=== PATIENT | male | born 1930 | race Caucasian/White ===

== ENCOUNTER 2019-11-13 01:36 | Observation (INO) | payer MEDICARE ==
[2019-11-13] MEDS ORDERED: Naloxone HCl 2 mg/2 ml Syringe ONE (02:07)
[2019-11-13 02:13] LABS: #Basophils 0.1 thou/uL (0.0-0.2); #Eosinphils 0.1 thou/uL (0.0-0.7); #Lymphocytes 2.6 thou/uL (1.20-3.40); #Monocytes 0.8 thou/uL (0.11-0.59); #Neutrophils 4.3 thou/uL (1.40-6.50); %Basophils 0.8 % (0.0-1.0); %Eosinophils 1.4 % (0.0-10.0); %Monocytes 10.1 % (0.0-10.0); %Neutrophils 54.7 % (42.0-75.0); Hemoglobin 12.3 g/dL (14.0-18.0); Mean Corpuscular HGB CONC 34.8 g/dL (32.0-36.0); Mean Corpuscular Volume 94.7 fL (78.0-98.0); Mean Platelet Volume 8.2 fL (7.4-10.4); Platelet Count 187 thou/uL (130-400); RBC Distribution Width 12.4 % (11.5-14.5); Red Blood Cell (RBC) Count 3.73 mill/uL (4.70-6.10); White Blood Cell (WBC) Count 7.9 thou/uL (4.8-10.8)
[2019-11-13 02:18] LABS: INR-International Normal Ratio 1.1; PTT 30.4 sec (22.9-36.1)
[2019-11-13 02:29] LABS: Acetaminophen Less than 6.0 mcg/mL (10.0-30.0); Alcohol Less than 10 mg/dL (Less than 10); Salicylate Less than 8.0 mg/dL (15.0-30.0)
[2019-11-13 02:30] LABS: ALT (SGPT) 9 U/L (8-55); AST (SGOT) 16 U/L (5-34); Alkaline Phosphatase 43 U/L (40-110); Anion Gap 13 mmol/L (10-20); BUN (Urea Nitrogen) 31 mg/dL (8.4-25.7); Bilirubin, Total 0.6 mg/dL (0.2-1.2); CK (CPK) 139 U/L (30-200); Calc. Creatinine Clearance 0 mL/min (70-130); Calcium 8.7 mg/dL (7.8-10.44); Carbon Dioxide 22 mmol/L (23-31); Chloride 108 mmol/L (98-107); Estimated GFR-MDRD 48; Globulin 3.1 g/dL (2.4-3.5); Glucose 100 mg/dL (83-110); Potassium 3.6 mmol/L (3.5-5.1); Protein, Total 7.1 g/dL (5.8-8.1); Sodium 139 mmol/L (136-145)
[2019-11-13 02:58] LABS: Bilirubin Negative (Negative); Blood, Urine Negative (Negative); Clarity Clear (Clear); Glucose, Urine (Dipstick) Normal (Negative); Leukocyte Negative Leu/uL (Negative); Nitrite Negative (Negative); Protein, Urine (Dipstick) 10 mg/dL (Neg-Trace); Urobilinogen Normal mg/dL (Less than 2)
[2019-11-13 03:14] LABS: Amphetamine Not Detected (NotDetected); Barbiturates Screen Not Detected (NotDetected); Benzodiazepine Screen Not Detected (NotDetected); Cocaine Metabolite Screen Not Detected (NotDetected); Medtox Control Line Valid? VALID (VALID); Medtox Reader # READER 4; Methadone Not Detected (NotDetected); Methamphetamine Not Detected (NotDetected); Opiate Screen Not Detected (NotDetected); Oxycodone Screen Not Detected (NotDetected); Phencyclidine (PCP) Not Detected (NotDetected); THC/Cannabinoid Screen Not Detected (NotDetected); Tricyclic Screen Detected (NotDetected)
--- NOTE | 2019-11-13 04:36 | HP ---
CHIEF COMPLAINT: Altered mental status. HISTORY OF PRESENT ILLNESS: The patient was found wandering around outside of a halfway, was seen by a bystander who called the EMS. The patient seems to be confused. The patient does not know his name. For now, he is admitted under the name of Michael Bustamante. The patient is awake, but mumbling and confused. Workup in the emergency room including CT of the brain, no acute finding. Urinalysis, no acute finding. Urine drug screen only positive for tricyclics. No further history can be obtained. The patient may have a history of Alzheimer dementia, but this is not confirmed. The patient is being admitted to hospital for further management. PAST MEDICAL HISTORY: Unknown?, Alzheimer dementia? PAST SURGICAL HISTORY: Scars noted to the head? unknown. PAST PSYCHIATRIC HISTORY: Unknown. SOCIAL HISTORY: Unknown. ALLERGIES: UNKNOWN. HOME MEDICATIONS: Unknown. REVIEW OF SYSTEMS: Unable to obtain due to the patient's confusion. PHYSICAL EXAMINATION: GENERAL: The patient is awake, confused. VITAL SIGNS: Blood pressure 124/67, pulse is 68, respiratory rate is 18, temperature is 98, oxygen saturation 100% on room air. HEENT: Head and neck normocephalic. NECK: Supple. No JVD. CHEST: Fair bilateral air entry. HEART: S1, S2. Regular. ABDOMEN: Soft, nontender. Bowel sounds present. NEUROLOGIC: Awake, confused. Moving extremities. PSYCHIATRIC: Unable to assess. EXTREMITIES: No clubbing or cyanosis. GENITOURINARY: No suprapubic tenderness. No flank tenderness. LABORATORY DATA: Urine drug screen only positive for tricyclics. Sodium is 139, BUN is 31, creatinine is 1.4. WBC 7.9, hemoglobin 12.3, platelets 187. CT of the brain was reported as no acute findings. ASSESSMENT AND PLAN: 1. Acute encephalopathy, metabolic? 2. Acute kidney injury? 3. Dehydration. 4. Dementia? 5. Alzheimer? PLAN: 1. Admit. 2. Tele monitor. 3. Frequent neuro checks. 4. IV fluids. 5. Monitor kidney function and urine output. 6. MRI of the brain in a.m. 7. Consult Neurology in a.m. for evaluation and further recommendation. 8. Consult complex case manager/manager social media. The patient was found outside the halfway confused, with unknown name or history at this time. 9. DVT prophylaxis as appropriate. 10. Expected length of stay at least 1 midnight if the patient is stable and safe to be discharged. Job ID: [id number]
[2019-11-13 05:18] VITALS: BMI 20.7
[2019-11-13] MEDS: Sodium Chloride 0.9% 1,000 ML IV SCH ×2 (06:48→17:42)
--- NOTE | 2019-11-13 07:38 | CT ---
PRELIMINARY REPORT/[facility]/EMERGENCY AFTER HOURS PROCEDURE: This report was discussed with Sharer, Dipti ANGEL by Any Wood on Nov 13, 2019 02:23:00 CDT. Add endum electronically signed by Any Wood on November 13, 2019 2:24:[address] BRAIN WITHOUT CONTRAST History: Per EMS he was found wandering around outside of a half-way. There was a bystander that found him. He seemed confused. He does not know his name. He cannot provide any history. Comparison: None. Findings: There is age-related atrophy. Punctate basal ganglia calcifications on the right. Bilateral moderate periventricular and subcortical white matter hypodensities are nonspecific, most likely on the basis of chronic small vessel ischemia. Cedeño-white interface preserved throughout. No evidence of sulcal effacement. No intracranial hemorrhage, mass effect or midline shift. No hydrocephalus or extra-axial fluid collection. Calvarium intact. No focal scalp hematoma identified. Vascular calcifications are present. Orbits, pa ranasal sinuses and mastoid air cells are unremarkable. Bilateral lens replacements noted. Impression: 1. No acute intracranial abnormality identified. If concern persists, consider MRI. 2. Chronic and senescent intracranial findings, as above. ELECTRONICALLY SIGNED BY: Jin Taylor DO Nov 13, 2019 2:20:42 AM CDT FINAL REPORT: EXAM: HEAD CT WITHOUT CONTRAST: HISTORY: Altered mental status. COMPARISON: None. FINDINGS: Hemorrhage: No intraparenchymal hemorrhage or extra-axial hematoma. Brain parenchyma: Cortical cedeño-white matter differentiation is preserved. No mass effect or midline shift. Basilar cisterns are patent.White matter hypodensities due to chronic small vessel ischemic change. Ventricular system: Ventricles and sulci are patent and symmetric. Calvarium: Intact. Sinuses and mastoid air cells: Adequate aeration. IMPRESSION: 1. This report is in agreement with initial report by [facility]. 2. No acute intracranial process. Transcribed Date/Time: 11/13/2019 8:03 AM
--- NOTE | 2019-11-13 07:55 | RAD ---
CHEST 1 VIEW: HISTORY: Altered mental status. Comparison: None. FINDINGS: Cardiac silhouette:Normal cardiac silhouette. There are sternotomy wires and mediastinal clips. Aorta: Atherosclerosis. Pulmonary vessels: Normal. Costophrenic angles: Minimal left-sided pleural effusion. LUNGS: Patchy opacities lung bases. Correlate for aspiration, atelectasis or pneumonia. Pneumothorax: None. Osseous abnormalities: None. IMPRESSION: 1. Atherosclerosis 2. Pleural and parenchymal changes along bases. Continued surveillance is recommended. CODE T Transcribed Date/Time: 11/13/2019 8:22 AM
[2019-11-13] MEDS: Aspirin 81 mg Enteric Coated Tablet PO SCH (08:16)
--- NOTE | 2019-11-13 13:42 | EEG ---
Referring Physician: Stephanie NICOLE EEG # [id number] TEST TYPE: EXTENDED CONTINUOUS VIDEO EEG REPORT: This EEG was performed using 24 channel [employer] digital video EEG machine with 24 disc electrodes. This was an extended 2 hour 10 minutes of inpatient video EEG recording. Digital analysis of the EEG was done for spike and seizure detection which revealed no abnormalities. BACKGROUND: The posterior background rhythm was not observed. HYPERVENTILATION: Not performed. PHOTIC STIMULATION: No significant response seen with photic stimulation. SLEEP: No stage change was observed. EEG DIAGNOSIS: 1.) Generalized irregular theta activity seen during the recording. 2.) Absence of posterior background rhythm. CLINICAL INTERPRETATION: THIS EEG IS CONSISTENT WITH MODERATE GENERALIZED NONSPECIFIC CEREBRAL DYSFUNCTION. NO ICTAL OR INTERICTAL EPILEPTIFORM ABNORMALITIES SEEN DURING THE RECORDING. Special Effects Person: PAULA [employer] Officer: EEG.NOMI MOURA
--- NOTE | 2019-11-13 15:45 | CT ---
CT cervical spine noncontrast HISTORY: Injury. COMPARISON: 07/13/2019. FINDINGS: Vertebral body heights and alignment are maintained. Multilevel disc space narrowing and os teophytosis are similar in appearance to the prior study. Old healed fracture at the base of the odontoid process is similar in appearance to prior study. Resu ltant retropulsion and circumferential degenerative changes, resulting in stenosis of the central canal, are unchanged. Prominent calcification at each carotid bifurcation. IMPRESSION : Old healed odontoid process fracture. Degenerative changes No acute osseous abnormalities are demonstrated. Atherosclerosis.
--- NOTE | 2019-11-13 15:46 | MRI ---
MRI OF BRAIN WITHOUT CONTRAST: 11/13/19 INDICATIONS: Mental status change. TIA. Correlation made to CT performed earlier today. FINDINGS: There is cortical atrophy. Ventricles have normal size and position given the degree of atrophy. Moderate chronic ischemic white matter change. No evidence of restricted diffusion. No evidence of acute infarct, mass, or edema. No evidence of hem orrhage. The intracranial internal carotid arteries and proximal cerebral arteries show expected flow voids. B asilar artery appears patent. The paranasal sinuses and mastoids are clear. On the sagittal T1 sequence, there is deformity involving the C2 vertebrae. Correlation is made to pr ior CT cervical spine of 07/13/19. Deformity was present at that time; however, on the current study th ere is evidence of fracture through the base of the dens which was not present on the prior study. Th ere is no significant change in position since that exam. Suggest further evaluation with CT cervical spine to assess interval change from the prior study. IMPRESSION: 1. Moderately severe chronic ischemic white matter change. No evidence of acute infarct. 2. Sagittal T1 images show evidence of fracture at the base of the dens. There is deformity of t he C2 vertebra which was noted on CT cervical spine of 07/13/19. However, the fracture may be new since that time. Recommend further evaluation with CT cervical spine to assess interval change. These findings and recommendations were relayed to the patient's nurse, Constance at 2SE at the time of t his exam. That call will be placed in order of CT cervical spine made after notifying the patient's p hysician.
--- NOTE | 2019-11-13 17:23 | PDOC.EVN ---
Event Note - Event Note Event Note: Discussed plan with Niece. Patient at baseline and is pending placement. Code status changed per [facility] request
[2019-11-13] MEDS ORDERED: Haloperidol Lactate 5 MG/ML VIAL IM PRN (17:41)
[2019-11-13] MEDS ORDERED: levETIRAcetam 500 MG TAB PO SCH (21:00)
[2019-11-13] MEDS: levETIRAcetam 500 mg/5 ml Oral Solution PO SCH ×2 (21:44→21:50)
--- NOTE | 2019-11-14 05:50 | CON ---
DATE OF CONSULTATION: 11/13/2019 REASON FOR CONSULTATION: Altered mental status. HISTORY OF PRESENT ILLNESS: Mr. James Stover is an 89-year-old male, who was consulted for altered mental status. The history is taken from review of the records as the patient is unable to provide the history and is a poor historian. He was found wandering outside the assisted by the bystander, who called EMS. The patient seemed to be confused at that time. He was admitted to the assisted with the name of Michael Bustamante. In the emergency room, he was awake, follows commands intermittently, and he was confused. In the emergency room, head CT was done which was negative. The patient does have history of Alzheimer dementia and is admitted to the hospital for further management. PAST MEDICAL HISTORY: Alzheimer dementia. PAST SURGICAL HISTORY: Scars on the head. SOCIAL HISTORY: group home resident. ALLERGIES: NO KNOWN DRUG ALLERGIES. FAMILY HISTORY: NOT KNOWN HOME MEDICATIONS: Not known. REVIEW OF SYSTEMS: Unavailable secondary to the patient's confusion. PHYSICAL EXAMINATION: VITAL SIGNS: Blood pressure 120/60, pulse 80, respiratory rate 18. CVS: Regular rate and rhythm. CHEST: Clear. ABDOMEN: Soft. NECK: No carotid bruit. NEUROLOGIC: Mental status; the patient is alert and oriented to his name only. He does not know the place or the year. According to him, he is at his office in the [place], which he has built himself. Motor; muscle tone and bulk are normal. Moving all 4 extremities equally and symmetrically. Sensory, withdraws to nailbed pressure bilaterally. Cerebellar; finger-nose testing intact. Cranial nerves 2 through 12 intact. Gait deferred due to the patient's safety reasons. DATA REVIEWED: Head CT reviewed which did not reveal any acute intracranial process. Urinalysis showed no acute findings and urine drug screen was positive for tricyclics. ASSESSMENT AND PLAN: Mr. James Stover is an 89-year-old male consulted for altered mental status. Altered mental status may be multifactorial including metabolic dementia; however, acute intracranial process cannot be ruled out. Recommend MRI of the brain to rule out acute intracranial process. Telemetry. Neuro checks every 4 hours. EEG to rule out underlying seizure activity. Continue medical management per primary team. Monitor urinary function. DVT prophylaxis. Further recommendations depend on the results of the testing. Job ID: [id number] [facility]
[2019-11-14] MEDS ORDERED: Haloperidol Lactate 5 MG/ML VIAL IM SCH (06:15)
[2019-11-14 06:17] LABS: Anion Gap 13 mmol/L (10-20); BUN (Urea Nitrogen) 22 mg/dL (8.4-25.7); Calc. Creatinine Clearance 41 mL/min (70-130); Calcium 8.7 mg/dL (7.8-10.44); Carbon Dioxide 22 mmol/L (23-31); Cardiac Risk 3.8 (Less than 4.5); Chloride 111 mmol/L (98-107); Cholesterol 161 mg/dl (< 200 Desired); Estimated GFR-MDRD 61; Glucose 91 mg/dL (83-110); HDL Cholesterol 42 mg/dL (>60 Neg Risk); LDL Cholesterol, Calculated 99 mg/dL; Potassium 3.5 mmol/L (3.5-5.1); Sodium 142 mmol/L (136-145); Triglycerides 99 mg/dL (Less than 150)
[2019-11-14] MEDS: Sodium Chloride 0.9% 1,000 ML IV SCH (06:37)
[2019-11-14] MEDS: Aspirin 81 mg Enteric Coated Tablet PO SCH (08:44)
[2019-11-14] MEDS: Losartan 25 MG TAB PO SCH (08:44)
--- NOTE | 2019-11-14 12:14 | PDOC.HOSPP ---
- Subjective Encounter Date: 11/14/19 Subjective: NEUROLOGY PROGRESS NOTE Patient is awake but does not follow commands. Per niece, he is at his baseline. No acute events overnight. - Objective Vital Signs & Weight: Vital Signs (12 hours) Temp Pulse Resp BP BP Pulse Ox 11/14/19 11:48 97.4 F L 68 18 129/72 100 11/14/19 08:43 97.8 F 72 20 128/69 99 11/14/19 04:25 115/69 11/14/19 03:37 97.9 F 72 18 98 Weight Weight 145 lb I&O: 11/13/19 11/14/19 11/15/19 06:59 06:59 06:59 Intake Total 2350 Balance 2350 Result Diagrams: 11/13/19 02:01 11/14/19 04:50 Radiology Reviewed by me: Yes EKG Reviewed by me: Yes Hospitalist ROS - Review of Systems ROS unobtainable: due to mental status - Medication Medications: Active Medications Generic Name Dose Route Start Last Admin Trade Name Freq PRN Reason Stop Dose Admin Aspirin 81 mg 11/13/19 09:00 11/14/19 08:44 Ecotrin PO 81 mg DAILY GREGORY Administration Haloperidol Lactate 2 mg 11/13/19 17:41 11/14/19 03:27 Haldol IM 2 mg Q4H PRN Administration Agitation if can't give quetia Levetiracetam 250 mg 11/13/19 21:00 11/13/19 21:50 Keppra Oral Solution PO Not Given QPM GREGORY Losartan Potassium 25 mg 11/14/19 09:00 11/14/19 08:44 Cozaar PO 25 mg DAILY GREGORY Administration Quetiapine Fumarate 25 mg 11/13/19 21:00 11/14/19 08:44 Seroquel PO 25 mg BID GREGORY Administration Sodium Chloride 10 ml 11/13/19 03:48 11/13/19 06:48 Flush - Normal Saline IVF 10 ml PRN PRN Administration Saline Flush - Exam General Appearance: awake alert Eye: PERRL ENT: normocephalic atraumatic Neck: supple Heart: RRR Respiratory: CTAB Gastrointestinal: soft Extremities: no cyanosis Skin: normal turgor Neurological: cranial nerve grossly intact, normal sensation to touch, no weakness, no focal deficits, no new deficit Musculoskeletal: normal tone, normal strength Psychiatric: not oriented Hosp A/P (1) AMS (altered mental status) Code(s): R41.82 - ALTERED MENTAL STATUS, UNSPECIFIED Status: Acute - Plan PT/OT, speech therapy 89 year old with baseline dementia admitted for altered mental status. Per niece , he is at his baseline. MRI brain reviewed which was negative for acute intracranial process. EEG reviewed which was negative for seizure activity. Cervical spine CT negative. Neurochecks every 4 hours. PT/OT/Speech Continue medical management per primary team. Awaiting placement.
--- NOTE | 2019-11-14 12:43 | PDOC.HOSPP ---
- Subjective Encounter Date: 11/14/19 Encounter Time: 09:00 Subjective: continues to be agitated overnight. This morning, uncooperative during examination. pending placement - Objective Vital Signs & Weight: Vital Signs (12 hours) Temp Pulse Resp BP BP Pulse Ox 11/14/19 11:48 97.4 F L 68 18 129/72 100 11/14/19 08:43 97.8 F 72 20 128/69 99 11/14/19 04:25 115/69 11/14/19 03:37 97.9 F 72 18 98 Weight Weight 145 lb I&O: 11/13/19 11/14/19 11/15/19 06:59 06:59 06:59 Intake Total 2350 Balance 2350 Result Diagrams: 11/13/19 02:01 11/14/19 04:50 Hospitalist ROS - Review of Systems ROS unobtainable: due to mental status (agitated, not answering questions) - Medication Medications: Active Medications Generic Name Dose Route Start Last Admin Trade Name Freq PRN Reason Stop Dose Admin Aspirin 81 mg 11/13/19 09:00 11/14/19 08:44 Ecotrin PO 81 mg DAILY GREGORY Administration Haloperidol Lactate 2 mg 11/13/19 17:41 11/14/19 03:27 Haldol IM 2 mg Q4H PRN Administration Agitation if can't give quetia Levetiracetam 250 mg 11/13/19 21:00 11/13/19 21:50 Keppra Oral Solution PO Not Given QPM GREGORY Losartan Potassium 25 mg 11/14/19 09:00 11/14/19 08:44 Cozaar PO 25 mg DAILY GREGORY Administration Quetiapine Fumarate 25 mg 11/13/19 21:00 11/14/19 08:44 Seroquel PO 25 mg BID GREGORY Administration Sodium Chloride 10 ml 11/13/19 03:48 11/13/19 06:48 Flush - Normal Saline IVF 10 ml PRN PRN Administration Saline Flush - Exam General Appearance: NAD, awake alert Heart: RRR, no murmur, no gallops, no rubs Respiratory: CTAB, no wheezes, no rales, no ronchi Gastrointestinal: soft, non-tender, non-distended, normal bowel sounds Extremities: no edema Psychiatric: negative: oriented to person, oriented to place, oriented to time Psychiatric - other findings: per niece, this is his baseline Hosp A/P - Plan #Dementia -per niece, patient previously diagnosed with dementia -agitated overnight -avoid medications with anticholinergic effects such as tricyclicsre, benzos, sedatives/hyponotics -quetiapine; if uncooperative, haldol IM instead #prerenal RICHARD -resolved after IVF
[2019-11-14] MEDS: levETIRAcetam 500 mg/5 ml Oral Solution PO SCH (22:01)
[2019-11-15] MEDS: Losartan 25 MG TAB PO SCH (08:16)
[2019-11-15] MEDS: Aspirin 81 mg Enteric Coated Tablet PO SCH (08:16)
--- NOTE | 2019-11-15 11:06 | PDOC.HOSPP ---
- Subjective Encounter Date: 11/15/19 Subjective: NEUROLOGY PROGRESS NOTE Patient is alert and awake. He speaks in full sentences but does not respond appropriately to questions. He has baseline dementia and per niece he is at his baseline. - Objective Vital Signs & Weight: Vital Signs (12 hours) Temp Pulse Resp BP BP Pulse Ox 11/15/19 08:13 97.8 F 57 L 18 150/90 H 97 11/15/19 04:32 97.5 F L 56 L 12 141/74 H 98 11/14/19 23:31 97.6 F 60 12 123/76 98 Weight Weight 145 lb I&O: 11/14/19 11/15/19 11/16/19 06:59 06:59 06:59 Intake Total 2350 Balance 2350 Result Diagrams: 11/13/19 02:01 11/14/19 04:50 Radiology Reviewed by me: Yes EKG Reviewed by me: Yes Hospitalist ROS - Review of Systems ROS unobtainable: due to mental status - Medication Medications: Active Medications Generic Name Dose Route Start Last Admin Trade Name Freq PRN Reason Stop Dose Admin Aspirin 81 mg 11/13/19 09:00 11/15/19 08:16 Ecotrin PO 81 mg DAILY GREGORY Administration Haloperidol Lactate 2 mg 11/13/19 17:41 11/14/19 03:27 Haldol IM 2 mg Q4H PRN Administration Agitation if can't give quetia Levetiracetam 250 mg 11/13/19 21:00 11/14/19 22:01 Keppra Oral Solution PO 250 mg QPM GREGORY Administration Losartan Potassium 25 mg 11/14/19 09:00 11/15/19 08:16 Cozaar PO 25 mg DAILY GREGORY Administration Quetiapine Fumarate 25 mg 11/13/19 21:00 11/15/19 08:16 Seroquel PO 25 mg BID GREGORY Administration Sodium Chloride 10 ml 11/13/19 03:48 11/15/19 08:15 Flush - Normal Saline IVF 10 ml PRN PRN Administration Saline Flush - Exam General Appearance: awake alert Eye: PERRL, anicteric sclera ENT: normocephalic atraumatic, no oropharyngeal lesions, moist mucosa Neck: supple, symmetric Heart: RRR Respiratory: CTAB Gastrointestinal: soft Extremities: no cyanosis, no clubbing, no edema Skin: normal turgor, no lesions, no rashes Neurological: cranial nerve grossly intact, normal sensation to touch, no weakness, no focal deficits, no new deficit Musculoskeletal: normal tone, normal strength, no muscle wasting Psychiatric - other findings: agitated Hosp A/P (1) AMS (altered mental status) Code(s): R41.82 - ALTERED MENTAL STATUS, UNSPECIFIED Status: Acute - Plan 89 year old with baseline dementia admitted for altered mental status. He continues to be agitated on exam but otherwise calm. Per niece, he is at his baseline. No acute issues or focal neurological deficits. Neurology work up completed. MRI brain reviewed which was negative for acute intracranial process. EEG reviewed which was negative for seizure activity. Cervical spine CT negative. Neurochecks every 4 hours. PT/OT/Speech Continue medical management per primary team. Awaiting placement. Anticipated discharge today.
[2019-11-15 11:39] VITALS: BP 155/82; TEMP 98
[2019-11-16] MEDS ORDERED: Prevnar 13-Val Conj/PF 0.5 ML SYRINGE IM ONE (09:00)
--- NOTE | 2019-11-16 22:46 | DIS ---
DATE OF ADMISSION: 11/13/2019 DATE OF DISCHARGE: 11/15/2019 HOSPITAL COURSE: Mr. Stover is an 89-year-old male with a medical history of recently diagnosed dementia who was found wandering and was admitted for confusion. In addition to that, he was found to have prerenal RICHARD. He was admitted and given fluids. Prerenal RICHARD resolved on the day following admission. During his inpatient stay, the patient was agitated and abusive towards the staff. Stroke code was changed from once daily to b.i.d. The patient's behavioral problems improved. On the day of discharge, he was calm, alert and oriented x2. He was discharged to long-term placement. PHYSICAL EXAMINATION: VITAL SIGNS: Blood pressure 165/82, temperature 98.0 Fahrenheit, pulse 73, respiratory rate 16, oxygen saturation 99% on room air. GENERAL: Sitting comfortably on the bed in no apparent distress, cooperative. HEART: Regular rate and rhythm. No murmurs, gallops, or rubs. RESPIRATORY: Clear to auscultation bilaterally. No wheezing, rales, or rhonchi. GASTROINTESTINAL: Soft, nontender, nondistended. Normal bowel sounds. EXTREMITIES: No edema. PSYCHIATRIC: Oriented to person and place, but not to time. MEDICATIONS: New medications: No new medications. Continued medications: Losartan 25 mg daily, levetiracetam 250 mg every evening. Modified medications: Quetiapine was changed from 50 mg every evening to 25 mg b.i.d. Job ID: [id number]
--- NOTE | 2019-11-23 12:45 | EKG ---
Test Reason : Blood Pressure : / mmHG Vent. Rate : 072 BPM Atrial Rate : 072 BPM P-R Int : 172 ms QRS Dur : 092 ms QT Int : 420 ms P-R-T Axes : 049 -51 047 degrees QTc Int : 459 ms Normal sinus rhythm Left axis deviation Abnormal ECG Confirmed by NATHAN MARTE DO ([id number]), videotape editor TITO ESQUEDA ([id number]) on 11/23/2019 12:44:48 PM Referred By: Confirmed By:NATHAN MARTE DO
== END 2019-11-15 13:19 ==
LOC: EDBD 01:36 → ERS 01:36 → 2SE 03:52 → INTOOBSV 03:52 → EDBD 03:52
PROVIDERS: ADMIT Internal Medicine; ATTEND Internal Medicine
DX: R41.0 Disorientation, unspecified (principal); N17.9 Acute kidney failure, unspecified; G30.9 Alzheimer's disease, unspecified; F02.81 Dementia in other diseases classified elsewhere, unspecified severity, with behavioral disturbance; E86.0 Dehydration; Z91.83 Wandering in diseases classified elsewhere; Z79.899 Other long term (current) drug therapy
CPT/HCPCS: 51701; 70450; 70551; 71045; 72125; 80048; 80053; 80061; 80306; 80307; 81003; 82550; 82962; 84484; 85025; 85610; 85730; 93005; 95712; 95816; 95819; 95957; 96361 ×2; 96372; 96374; 99285; G0378 ×4; 36415; 36416; J1630; J2310

== ENCOUNTER 2019-12-05 14:35 | Emergency (ER) | payer MEDICARE ==
--- NOTE | 2019-12-05 16:22 | CT ---
CT head noncontrast HISTORY: Altered mental status. COMPARISON: 11/13/2019. FINDINGS: There is no evidence of acute intracranial hemorrhage or infarct. Diffuse cortical atrophy and chronic ischemic small vessel disease are again demonstrated. There is no mass effect or shift of midline structures. Visualized paranasal sinuses remain well aera cathy. IMPRESSION : No acute intracranial abnormalities are demonstrated. Chronic-type findings are stable.
[2019-12-05 17:08] LABS: #Basophils 0.1 thou/uL (0.0-0.2); #Eosinphils 0.2 thou/uL (0.0-0.7); #Monocytes 0.7 thou/uL (0.11-0.59); #Neutrophils 4.2 thou/uL (1.40-6.50); %Basophils 0.9 % (0.0-1.0); %Eosinophils 2.5 % (0.0-10.0); %Lymphocytes 27.9 % (21.0-51.0); %Monocytes 10.3 % (0.0-10.0); %Neutrophils 58.5 % (42.0-75.0); Bacteria/HPF None Seen HPF (None Seen); Bilirubin Negative (Negative); Blood, Urine Trace (Negative); Clarity Clear (Clear); Glucose, Urine (Dipstick) Normal (Negative); Hemoglobin 11.8 g/dL (14.0-18.0); Ketone, Urine Negative (Negative); Leukocyte Negative Leu/uL (Negative); Mean Corpuscular HGB CONC 32.7 g/dL (32.0-36.0); Mean Corpuscular Hemoglobin 31.4 pg (27.0-31.0); Mean Corpuscular Volume 96.1 fL (78.0-98.0); Mean Platelet Volume 8.4 fL (7.4-10.4); Nitrite Negative (Negative); Platelet Count 217 thou/uL (130-400); Protein, Urine (Dipstick) 20 mg/dL (Neg-Trace); RBC Distribution Width 12.4 % (11.5-14.5); Red Blood Cell (RBC) Count 3.76 mill/uL (4.70-6.10); Specific Gravity, Urine 1.029 (1.002-1.036); Squamous Epithelial 0-3 HPF (0-3); Urobilinogen Normal mg/dL (Less than 2); WBC/HPF 0-3 HPF (0-3); White Blood Cell (WBC) Count 7.3 thou/uL (4.8-10.8); pH, Urine 5.5 (5.0-9.0)
[2019-12-05 17:26] LABS: ALT (SGPT) 17 U/L (8-55); AST (SGOT) 31 U/L (5-34); Alkaline Phosphatase 53 U/L (40-110); Anion Gap 11 mmol/L (10-20); BUN (Urea Nitrogen) 28 mg/dL (8.4-25.7); Bilirubin, Total 0.8 mg/dL (0.2-1.2); CK (CPK) 652 U/L (30-200); Calc. Creatinine Clearance 0 mL/min (70-130); Calcium 9.1 mg/dL (7.8-10.44); Carbon Dioxide 25 mmol/L (23-31); Chloride 107 mmol/L (98-107); Estimated GFR-MDRD 53; Globulin 3.2 g/dL (2.4-3.5); Glucose 86 mg/dL (83-110); Lipase 30 U/L (8-78); Potassium 3.9 mmol/L (3.5-5.1); Protein, Total 7.2 g/dL (5.8-8.1); Sodium 139 mmol/L (136-145)
== END 2019-12-05 18:51 | disposition home or self-care (01) ==
LOC: ERS 14:35
DX: R41.82 Altered mental status, unspecified (principal); F03.90 Unspecified dementia, unspecified severity, without behavioral disturbance, psychotic disturbance, mood disturbance, and anxiety; E86.0 Dehydration; Z79.899 Other long term (current) drug therapy
CPT/HCPCS: 51701; 70450; 80053; 81003; 81015; 82550; 83690; 85025; 93005; 96360